=== PATIENT | female | born 1990 | race Caucasian/White ===

== ENCOUNTER 2021-06-23 08:01 | Outpatient (CLI) | payer MEDICAID, SELFPAY ==
[2021-06-23 13:12] LABS: T4 Free Direct 0.98 ng/dL (0.76-1.46)
== END 2021-06-23 23:59 | disposition home or self-care (01) ==
LOC: BIMLAB 08:03
PROVIDERS: Referring Provider Internal Medicine Endocrinology, Diabetes & Metabolism; Visit Provider Internal Medicine Endocrinology, Diabetes & Metabolism
DX: E03.8 Other specified hypothyroidism (principal); E06.3 Autoimmune thyroiditis
CPT/HCPCS: 36415; 84439; 84443

== ENCOUNTER 2023-08-04 12:57 | Emergency (ER) | payer MEDICAID, SELFPAY ==
[2023-08-04 12:57] VITALS: BP 115/82; PULSE 89; RESP 14; TEMP 36.3; O2SAT 100; BMI 34.0
--- NOTE | 2023-08-04 13:36 | ED.VIS.GI ---
HPI HPI - GI History of Present Illness Chief Complaint: Abd Pain Detail of Chief Complaint: Upper abdominal pain with nausea and vomiting Informant: patient Abdominal Pain/Flank Pain Onset: Today Context: Sudden Onset Timing: Continuous Quality: Cramping Location: RUQ and LUQ Current Severity: Mild Maximum Severity: Severe Worsened by: Nothing Nausea/Vomiting/Emesis GI Symptom: Positive for Nausea and Vomiting Onset: Today Severity: Moderate Diarrhea/Melena/Hematochezia GI Symptom: Negative for Diarrhea, Melena or Hematochezia Associated Symptoms Associated Symptoms: Negative for Dysuria, Frequency, Hematuria or Urgency LMP: Patient states she cannot be because she recently delivered. Juhi Narrative Narrative: Patient is a 33-year-old woman. 2 days ago she complained of right shoulder pain. The shoulder pain abated after an hour or 2. She then developed discomfort in her epigastric subxiphoid region. This was yesterday. Today she reports pain that she localizes predominantly right upper quadrant also left upper quadrant without radiation associated with nausea and vomiting. She denies hematemesis or coffee-ground emesis. She endorses fever. She had a temperature of 102 yesterday. She is not having elevated temperature today. She denies any ill contacts. She does report mild nasal congestion. Denies ear pain or ringing in ears. She denies postnasal drainage or rhinorrhea. Denies sore throat. She denies cough or shortness of breath. She denies dyspnea on exertion. She states she had chicken nuggets after the pain started and did not make it worse. There is family history of gallbladder disease her mother of cholecystitis. Patient denies dysuria, frequency, urgency or hematuria. Patient is sexually active. Does not use any form of control. She has a history of hypothyroidism. 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 Karan Daniels MD) household members: children Smoking Status: Current every day smoker tobacco type: cigarettes alcohol intake: current alcohol intake frequency: a few times a month substance use type: other details: Cannabis ROS ROS ED Constitutional Constitutional ED: Reports chills and fever(s); Denies subjective, sweats or weight loss ENT ENT ED: Denies ear pain, rhinorrhea or sore throat Cardiovascular Cardiovascular: Reports chest pain; Denies orthopnea, palpitations, paroxysmal nocturnal dyspnea or racing heartbeat Respiratory/Chest Respiratory/Chest: Denies cough, dyspnea, dyspnea on exertion, orthopnea, paroxysmal nocturnal dyspnea or sputum Gastrointestinal Gastrointestinal: Reports abdominal pain, nausea and vomiting; Denies constipation, diarrhea or melena Genitourinary Genitourinary ED: Denies dysuria, hematuria or urinary frequency Musculoskeletal Musculoskeletal: Denies arthralgias, back pain, myalgias or neck pain Integumentary Denies rash Neurologic Neurologic: Denies headache(s), paresthesias or weakness Endocrine Endocrinology: Denies polydipsia, polyphagia or polyuria Hematologic/Lymphatic Hematologic/Lymphatic: Denies easy bleeding or easy bruising EXAM Physical Exam Const Vital Signs: 08/04/23 12:57 08/04/23 14:14 08/04/23 16:09 Temperature 97.3 F L Temperature Source Temporal Pulse Rate 89 78 85 Respiratory Rate 14 16 Blood Pressure 115/82 H 114/63 104/60 Blood Pressure Mean 93 80 74 Pulse Ox 100 99 Oxygen Delivery Method Room Air Positive well nourished, well developed and obese General Appearance ED: well developed and NAD; Negative for pallor Nutritional Appearance: obese HEENT Reports TM's clear and dry mucous membranes normocephalic and atraumatic Tympanic Membrane ED: Yes TM's clear Mouth ED: Yes dry mucous membranes Mouth: dry mucous membranes Eyes PERRL and EOMs intact bilaterally General Eye ED: Negative for pale conjunctiva or scleral icterus Neck no lymphadenopathy, supple and no JVD Resp normal respiratory effort and clear to auscultation bilaterally Cardio regular rate, regular rhythm, S1 normal heart sound and S2 normal heart sound GI non-distended and no masses; Negative for non-tender Auscultation: hypoactive bowel sounds Palpation: soft and tender epigastric and RUQ Back/Spine no CVA tenderness Thoracic Spine / Upper Back: Negative for thoracic spinal tenderness Lumbar Spine / Lower Back: Negative for lumbar spinal tenderness Extremity full ROM General Extremety ED: Negative for edema or tenderness General Extremity: Negative for edema Neuro CN's II-XII intact bilaterally, moves all extremities, no sensory deficits noted and gait normal Sensorium / Orientation: alert Motor Exam: strength 5/5 throughout Psych mental status grossly normal and thought process normal Skin no wounds General Skin Exam: Negative for jaundice or pallor Rashes: no rashes MDM MDM MDM Narrative Medical decision making narrative: Differential diagnosis would include abdominal pain unknown etiology, peptic ulcer disease, reflux, cholelithiasis, cholecystitis. Workup included CBC, hepatic and lipase. Because of the amount of vomiting electrolyte panel was obtained. If liver enzymes are elevated will obtain ultrasound otherwise suspect this is due to a viral illness and she had a documented temperature of 102.0 ?F yesterday. Lab Data Attestation: I reviewed the patient's lab results. Lab results narrative: CBC is normal. Basic metabolic panel is normal. Liver enzymes are normal. Lipase is normal. Labs: Laboratory Results - last 24 hr 08/04/23 14:10 WBC 5.0 RBC 4.23 Hgb 13.1 Hct 39.7 MCV 93.9 MCH 31.0 MCHC 33.0 RDW Std Deviation 42.5 RDW Coeff of Kiran 12.2 Plt Count 228 MPV 10.8 Immature Gran % (Auto) 0.400 Neut % (Auto) 61.8 Lymph % (Auto) 19.3 [place] % (Auto) 17.3 H Eos % (Auto) 0.6 Baso % (Auto) 0.6 Absolute Neuts (auto) 3.1 Absolute Lymphs (auto) 0.96 Nucleated RBC % 0 Differential Comment SCANNED Sodium 136 Potassium 3.5 Chloride 104 Carbon Dioxide 29.0 Anion Gap 3 L BUN 14 Creatinine 0.90 Estim Creat Clear Calc 105.49 Est GFR (MDRD) Af Amer 93 Est GFR (MDRD) Non-Af 77 BUN/Creatinine Ratio 15.5 Glucose 87 Calcium 8.8 Total Bilirubin 0.50 Direct Bilirubin 0.15 AST 16 ALT 36 Alkaline Phosphatase 33 L Total Protein 7.1 Albumin 3.7 Globulin 3.4 Lipase 17 Treatment and Re-Evaluation :: Patient was reassessed. She reports marked improvement of her pain with Toradol. Suspect this is all due to a viral illness. Patient was informed this. She was given a work excuse and discharged home. Discharge Plan Triage Chief Complaint: Abd Pain ED Provider: Karan Daniels Dx/Rx/DC Orders Clinical Impression: Systemic viral illness, Obesity, Nausea & vomiting, Acute dehydration, Abdominal pain, bilateral upper quadrant Instructions: ED Viral Syndrome (Adult) Prescriptions: No Action levothyroxine 125 mcg tablet 125 mcg PO DAILY Qty: 30 1RF Stand Alone Forms: ED Work / School Excuse Primary Care Provider: Ct Linn NP Referrals: Ct Linn NP, INSURANCE CLAIMS PROCESSOR-C [Primary Care Provider] - 1 Week if not improving Disposition Disposition: Home, Self Care
[2023-08-04 14:13] LABS: Absolute Lymphocyte Count 0.96 X10^3/uL (0.83-4.51); Absolute Neutrophil Count 3.1 X10^3/uL (2.0-7.7); Basophil# 0.03 X10^3/uL; Basophil% 0.6 % (0-1); Eosinophil# 0.03 X10^3/uL; Eosinophils% 0.6 % (0-5); Hematocrit 39.7 % (37-47); Hemoglobin 13.1 g/dL (12.0-15.0); Lymphocyte # 0.96 X10^3/ul (0.83-4.51); Lymphocyte % 19.3 % (19-41); Mean Corpuscular Volume 93.9 fL (81-99); Mean Platelet Vol. 10.8 fl (6.2-12.0); Monocyte# 0.86 X10^3/uL; Monocyte% 17.3 % (0-10); NRBC Flagged by Analyzer 0 % (0-5); Neutrophil # 3.08 X10^3/uL (2.7-7.7); Neutrophil % 61.8 % (47-70); POSITIVE MORPHOLOGY YES; Platelet Count 228 K/mm3 (150-450); RBC Distribution Width CV 12.2 % (11.6-14.6); RBC Distribution Width SD 42.5 fl (35.1-43.9); Red Blood Count 4.23 M/mm3 (4.2-5.4)
[2023-08-04 14:14] VITALS: BP 114/63; PULSE 78
[2023-08-04 14:16] LABS: Differential Indicated SCAN CRITERIA MET
[2023-08-04 14:28] LABS: AST(SGOT) 16 U/L (15-37); Alanine Aminotransfer ALT/SGPT 36 U/L (13-56); Albumin, Serum 3.7 g/dL (3.2-5.0); Alkaline Phosphatase 33 U/L (45-117); Anion Gap 3 (5-15); BUN 14 mg/dL (7-18); BUN/Creat Ratio 15.5 RATIO (10-20); Bilirubin, Direct 0.15 mg/dL (0.00-0.30); Calcium,Total 8.8 mg/dL (8.5-10.1); Chloride 104 mmol/L (98-107); EST Glomerular Filtration Rate 77 mL/min (>60); Est Glom Filt Rate - Afr Amer 93 mL/min (>60); Estimated Creatinine Clearance 105.49 ml/min; Globulin 3.4 g/dL (2.2-4.2); Glucose 87 mg/dL (74-106); Lipase 17 U/L (13-75); Potassium 3.5 mmol/L (3.5-5.1); Protein, Total 7.1 g/dL (6.4-8.2); Sodium Level 136 mmol/L (136-145)
[2023-08-04 14:47] LABS: Differential Comment SCANNED
[2023-08-04] MEDS: Ketorolac 15 MG/ML Vial IV (15:28)
[2023-08-04 16:09] VITALS: BP 104/60; PULSE 85; RESP 16; O2SAT 99
[2023-08-04 16:51] VITALS: BP 110/76; PULSE 81; RESP 14; TEMP 36.1; O2SAT 100
== END 2023-08-04 16:58 | disposition home or self-care (01) ==
PROVIDERS: Emergency Provider Emergency Medicine; PCP Registered Nurse; Visit Provider Emergency Medicine
DX: B34.9 Viral infection, unspecified (principal); R11.2 Nausea with vomiting, unspecified; E66.9 Obesity, unspecified; E86.0 Dehydration; R10.13 Epigastric pain; R09.81 Nasal congestion; F17.200 Nicotine dependence, unspecified, uncomplicated; R10.12 Left upper quadrant pain; E03.9 Hypothyroidism, unspecified; Z87.442 Personal history of urinary calculi
CPT/HCPCS: J2405; 80048; 80076; 83690; 85025; 96374; 99283; J7030; A4216

== ENCOUNTER 2023-11-19 03:46 | Emergency (ER) | payer BC, MEDICAID, SELFPAY ==
[2023-11-19 03:47] VITALS: BP 149/79; PULSE 88; RESP 18; TEMP 35.5; O2SAT 98; BMI 36.8
--- NOTE | 2023-11-19 04:06 | RAD_ITS ---
INDICATION: dyspnea EXAMINATION/TECHNIQUE: X-RAY - XR Chest 2 Views COMPARISON: None. Findings: Frontal and lateral views of the chest. LUNG PARENCHYMA: No acute focal airspace disease or mass lesion. PLEURA: No pleural effusion. No pneumothorax. HEART/GREAT VESSELS: Cardiomediastinal silhouette is unremarkable. BONES: Osseous structures are unremarkable for age. RAD/Chest PA and Lateral IMPRESSION: Chest with no acute disease. Electronically Signed: Sivakumar Rivas MD at 5:59 EDT ,
--- NOTE | 2023-11-19 04:06 | EKG12_ITS ---
Test Reason : Blood Pressure : / mmHG Vent. Rate : 071 BPM Atrial Rate : 071 BPM P-R Int : 128 ms QRS Dur : 092 ms QT Int : 418 ms P-R-T Axes : 036 030 012 degrees QTc Int : 454 ms Normal sinus rhythm Nonspecific T wave abnormality Abnormal ECG Confirmed by JAYSHREE MEADOWS, JENNIFER ([id number]), video news editor JOSIAH FLORES ([id number]) on 11/22/2023 2:02:07 PM Referred By: Confirmed By:KENDRA MARTELL MD
[2023-11-19 04:21] LABS: Absolute Neutrophil Count 4.7 X10^3/uL (2.0-7.7); Basophil# 0.03 X10^3/uL; Basophil% 0.4 % (0-1); Eosinophil# 0.19 X10^3/uL; Eosinophils% 2.4 % (0-5); Hematocrit 33.5 % (37-47); Hemoglobin 11.2 g/dL (12.0-15.0); Lymphocyte % 30.5 % (19-41); Mean Corp Hgb Conc 33.4 g/dL (32-36); Mean Corpuscular Hgb 30.8 pg (27.0-32.0); Mean Platelet Vol. 10.3 fl (6.2-12.0); Monocyte% 6.4 % (0-10); NRBC Flagged by Analyzer 0 % (0-5); Neutrophil # 4.72 X10^3/uL (2.7-7.7); Platelet Count 256 K/mm3 (150-450); RBC Distribution Width CV 13.3 % (11.6-14.6); RBC Distribution Width SD 44.9 fl (35.1-43.9); Red Blood Count 3.64 M/mm3 (4.2-5.4); White Blood Count 7.9 K/mm3 (4.4-11.0)
[2023-11-19 04:31] LABS: Internal QC Validated? YES +Cl - CLEAR BKGD; Pregnancy, Serum, hCG Quali. NEGATIVE Negative
[2023-11-19 04:32] LABS: D-Dimer Quantitative (DVT/PE) 0.28 FEU/ug/m (0.27-0.49)
[2023-11-19 04:40] LABS: Anion Gap 6 (5-15); BUN 18 mg/dL (7-18); BUN/Creat Ratio 20.9 RATIO (10-20); Calcium,Total 9.2 mg/dL (8.5-10.1); Chloride 105 mmol/L (98-107); Creatinine, Serum 0.86 mg/dL (0.55-1.02); EST Glomerular Filtration Rate 81 mL/min (>60); Est Glom Filt Rate - Afr Amer 98 mL/min (>60); Estimated Creatinine Clearance 119.04 ml/min; Glucose 102 mg/dL (74-106); Magnesium 1.8 mg/dL (1.6-2.6); Potassium 3.8 mmol/L (3.5-5.1); Sodium Level 137 mmol/L (136-145); Troponin-I HS < 3 pg/mL (3.0-54.0)
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
[2023-11-19 05:41] VITALS: BP 103/65; PULSE 71; RESP 16; TEMP 36.4; O2SAT 96
== END 2023-11-19 05:41 | disposition home or self-care (01) ==
PROVIDERS: Emergency Provider Emergency Medicine; Visit Provider Emergency Medicine
DX: R20.2 Paresthesia of skin (principal); E03.9 Hypothyroidism, unspecified; F17.200 Nicotine dependence, unspecified, uncomplicated; R06.09 Other forms of dyspnea; Z87.442 Personal history of urinary calculi; R07.9 Chest pain, unspecified
CPT/HCPCS: 71046; 80048; 83735; 84484; 84703; 85025; 85379; 93005; 99282; J7030

== ENCOUNTER 2024-01-31 10:01 | Emergency (ER) | payer BC, MEDICAID, SELFPAY ==
[2024-01-31 10:02] VITALS: BP 135/91; PULSE 107; RESP 16; TEMP 36.1; O2SAT 100; BMI 35.2
--- NOTE | 2024-01-31 10:10 | ED.RN ---
PT SAID SHE HAS BEEN DRINKING NON-STOP AND FEELS LIKE SHE NEVER FEELS LIKE HER THIRST IS QUENCHED. SHE HAS HAD SOME DIARRHEA ON TUESDAY INTERMITTENTLY. HX OF KIDNEY STONES AND BLADDER INFECTIONS. SHE SAID HER URINE HAS BEEN SMELLING VERY STRONG.
--- NOTE | 2024-01-31 10:15 | CT_ITS ---
INDICATION: left flank p[ain. K-stone hx EXAMINATION: CT ABDOMEN AND PELVIS WITHOUT CONTRAST - CT Abdomen And Pelvis W/O Contrast Injection TECHNIQUE: Helically acquired images were obtained of the abdomen and pelvis without oral or IV contrast. The protocol utilizes one or more of the following dose reduction techniques: automated exposure control, adjustment of mA and/or kV according to patient size,and/or use of iterative reconstruction technique. IV Contrast dosage and agent: None. Oral contrast: None. RADIATION DOSAGE (If Supplied By Facility): CTDIvol = ( 19.07 ) mGy, DLP = ( 1114.85 ) mGycm COMPARISON: No relevant prior comparison study available FINDINGS: LOWER CHEST: Lung bases are clear. No cardiomegaly or pericardial effusion. LIVER: Homogeneous. No focal mass. GALLBLADDER AND BILIARY TREE: Absent gallbladder consistent with previous cholecystectomy. No intra- or extrahepatic biliary ductal dilation. PANCREAS: No focal cystic or solid mass. SPLEEN: Normal size without focal cystic or solid mass. ADRENAL GLANDS: No nodules. KIDNEYS AND URETERS: 4 mm nonobstructing stone in the midpole of right kidney. No hydronephrosis. PERITONEUM: No ascites or free air. No other fluid collection. BOWEL: No evidence of acute appendicitis. No stomach or bowel distension. No focal inflammatory change. LYMPH NODES: No enlarged mesenteric or retroperitoneal lymph nodes. VESSELS: Aorta is non-dilated. URINARY BLADDER: The bladder is not distended. Multiple pelvic calcifications likely due to phleboliths. REPRODUCTIVE ORGANS: No pelvic masses. ABDOMINAL WALL: Very small umbilical hernia containing fat. BONES: No lytic or blastic abnormality. CT/Abdomen/Pelvis without Cont IMPRESSION: 1. Small nonobstructing stone in the right kidney without evidence of hydronephrosis. 2. No focal acute inflammatory process. Electronically Signed: Yuval Lewis MD at 11:07 EDT ,
--- NOTE | 2024-01-31 10:17 | ED.VIS.GI ---
HPI HPI - GI History of Present Illness Chief Complaint: Flank Pain Detail of Chief Complaint: Atraumatic left flank pain for 3 days. Informant: patient Abdominal Pain/Flank Pain Onset: Days Context: Gradual Onset Timing: Continuous Location: Left Flank Current Severity: Mild Maximum Severity: Moderate Worsened by: Nothing Relieved by: Nothing Nausea/Vomiting/Emesis GI Symptom: Negative for Nausea or Vomiting Diarrhea/Melena/Hematochezia GI Symptom: Positive for Diarrhea; Negative for Melena or Hematochezia Associated Symptoms Associated Symptoms: Negative for Dysuria, Frequency or Hematuria Narrative Narrative: 34-year-old female history of prior kidney stones, hypothyroidism and UTIs. Complaint left flank pain for the last 3 days since Tuesday. Mild diarrhea last several days.. Denies dysuria or hematuria. No fever. No vomiting. 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 Home Medications ?Medication ?Instructions ?Recorded ?Last Taken ?Type levothyroxine 125 mcg tablet 125 mcg PO DAILY #30 tabs 04/07/22 Unknown Rx Allergy/AdvReac Type Severity Reaction Status Date / Time sulfamethoxazole (From Allergy Rash Verified 01/31/24 10:12 Bactrim) trimethoprim (From Bactrim) Allergy Rash Verified 01/31/24 10:12 Family History Other Alcohol abuse CAD (coronary artery disease) Diabetes Hypertension Thyroid disorder Social History household members: children Smoking Status: Current every day smoker tobacco type: e-cigarettes alcohol intake: current alcohol intake frequency: a few times a month substance use type: other details: Cannabis ROS ROS ED ROS Narrative Left flank pain. Diarrhea. Constitutional Constitutional ED: Denies chills or fever(s) ENT ENT ED: Denies ear pain Cardiovascular Cardiovascular: Denies chest pain Respiratory/Chest Respiratory/Chest: Denies cough or dyspnea Gastrointestinal Gastrointestinal: Reports abdominal pain and diarrhea; Denies constipation, melena, nausea or vomiting Genitourinary Genitourinary ED: Denies dysuria or hematuria Musculoskeletal Musculoskeletal: Reports back pain; Denies arthralgias Integumentary Denies abscess or Abrasions Neurologic Neurologic: Denies headache(s) Psychiatric Psychiatric: Denies anxiety Endocrine Endocrinology: Denies polydipsia Hematologic/Lymphatic Hematologic/Lymphatic: Denies easy bleeding Allergic/Immunologic Allergic/Immunologic ED: Denies mouth swelling, tongue swelling or urticaria EXAM Physical Exam Narrative Exam Narrative: 34-year-old female no acute distress vital signs stable afebrile. H EENT exam unremarkable. Mytrex membranes. Neck nontender no lymphadenopathy. Lungs good auscultation bilaterally. Heart regular rhythm rate about 100 no murmur. Abdomen soft, nontender, nondistended normal bowel sounds without peritoneal signs. Back she has reproducible soft tissue muscular pain left [place] lumbar thoracic soft tissue. No ecchymosis or bruising. No signs of trauma. No redness or warmth. The rest of her back and spine is completely nontender. Moving all 4 extremities. Nontender. No edema normal strength. Normal range of motion. She is awake and alert. No focal motor deficits. Const Vital Signs: 01/31/24 10:02 Temperature 97.0 F L Temperature Source Temporal Pulse Rate 107 H Respiratory Rate 16 Blood Pressure 135/91 H Blood Pressure Mean 105 Pulse Ox 100 Oxygen Delivery Method Room Air Positive well nourished and well developed; Negative for cachectic, contractures or unkempt General Appearance ED: well developed and NAD; Negative for unkempt, cachectic, contractures or pallor Nutritional Appearance: Negative for cachectic HEENT Reports moist mucous membranes normocephalic and atraumatic Eyes PERRL and EOMs intact bilaterally General Eye ED: Negative for pale conjunctiva or scleral icterus Neck no lymphadenopathy, supple and no JVD Resp normal respiratory effort and clear to auscultation bilaterally Cardio regular rate, regular rhythm, S1 normal heart sound, S2 normal heart sound and no murmurs GI non-tender, non-distended and no masses Inspection: Negative for abdominal distention Auscultation: normoactive bowel sounds Palpation: soft; Negative for tender, guarding or rebound tenderness present Back/Spine no CVA tenderness Back/Spine Narrative: Left flank tenderness appears to be musculoskeletal. No ecchymosis or bruising. No signs of trauma. No spinal tenderness. Cervical Spine: Negative for cervical spine tenderness Thoracic Spine / Upper Back: Negative for thoracic spinal tenderness Lumbar Spine / Lower Back: Negative for lumbar spinal tenderness Extremity full ROM General Extremety ED: Negative for edema or tenderness General Extremity: Negative for edema Neuro CN's II-XII intact bilaterally, moves all extremities and no sensory deficits noted Sensorium / Orientation: alert, oriented to person, oriented to place and oriented to time Motor Exam: strength 5/5 throughout Psych mental status grossly normal and thought process normal Appearance: Negative for unkempt Attitude: No agitated Mood & Affect: Negative for depressed or anxious Skin no wounds General Skin Exam: Negative for jaundice or pallor Rashes: no rashes Trauma: Negative for abrasion MDM MDM MDM Narrative Medical decision making narrative: 34-year-old female left flank pain for the last 3 days or so. She had recent blood work at the end of November. I do not think she needs lab work at this time. We are obtaining urinalysis. To consider UTI or hematuria. A CT flank study due to her history of prior kidney stones. This may be musculoskeletal however. IV Toradol for pain. CAT scan and urine were unremarkable. I think her pain is secondary to musculoskeletal back pain. I do not think this is a kidney stone or kidney infection. Motrin and Tylenol for pain. Patient I discussed she does not want a muscle relaxant I do not think she needs one either. Outpatient follow-up as needed. History & Record Review Discussion w/independent historian: Patient Lab Data Attestation: I reviewed the patient's lab results. Lab results narrative: Urinalysis shows: Macroscopic shows 25 occult blood. No nitrites. Microscopic showed no signs of infection. 1+ bacteria. CT flank study showed a small stone in the right kidney but no acute left ureteral stone or obstruction. Labs: Laboratory Results - last 24 hr 01/31/24 10:24 Urine Color Yellow Urine Clarity Sl. Cloudy Urine pH 6.0 Ur Specific [place] 1.025 Urine Protein 15 H Urine Glucose (UA) Normal Urine Ketones Negative Urine Occult Blood 25 H Urine Nitrite Negative Urine Bilirubin Negative Urine Urobilinogen Normal Ur Leukocyte Esterase Negative Urine RBC 0-5 SEEN Urine WBC 0 SEEN Ur Squamous Epith Cells 0-5 SEEN Urine Bacteria 1+ Urine Mucus 1+ Radiography Diagnostic Testing: Clinical Impression(s) from Imaging Studies Abdomen/Pelvis CT 01/31/24 10:15 IMPRESSION: 1. Small nonobstructing stone in the right kidney without evidence of hydronephrosis. 2. No focal acute inflammatory process. Electronically Signed: Yuval Lewis MD at 11:07 EDT , Discharge Plan Triage Chief Complaint: Flank Pain ED Provider: Shawn Andrea Dx/Rx/DC Orders Clinical Impression: Acute left flank pain, Musculoskeletal back pain, History of renal stone Instructions: ED Back Pain (Acute or Chronic) Prescriptions: No Action levothyroxine 125 mcg tablet 125 mcg PO DAILY Qty: 30 1RF Patient Comments: pt reports she has not taken medication in 30 days Primary Care Provider: Penelope Montano Referrals: Care Physician,No Primary [Non-Staff] - Penelope Montano PA-C [Primary Care Provider] - As Needed Activity Restrictions/Additional Instructions: Your CAT scan did not show any acute signs of a left sided kidney stone. Your urine did not look infected. Most likely your pain is from muscle spasm in your back. Hot shower warm bath. Massage. Motrin 600 mg 3 times daily. And Tylenol. Follow-up if not improving or return if worse. Print Language: Citizen Of [place] Disposition Disposition: Home, Self Care
[2024-01-31] MEDS: Ketorolac 30 MG/ML Syringe IV (10:20)
[2024-01-31 10:28] LABS: White Blood Cells 0 SEEN /hpf (0-5)
[2024-01-31 10:42] LABS: Color, Urine Yellow (Yellow); Glucose, Dipstick Normal (Normal); Ketone-Dipstick Negative (Negative); Leukocyte Esterase-Dipstick Negative /ul (Negative); Nitrite-Dipstick Negative (Negative); Occult Blood-Urine 25 /ul (Negative); Protein-Dipstick 15 mg/dl (Negative); Specific Gravity, Urine 1.025 (1.002-1.030); Urine Bilirubin Dipstick Negative (Negative); Urine Clarity Sl. Cloudy (Clear); Urine Urobilinogen Normal (Normal)
[2024-01-31 10:48] LABS: Bacteria 1+ /hpf (None Seen); Mucous, Urine 1+ /hpf (<or=2+); Red Blood Cells-Urine 0-5 SEEN /hpf (0-5); Squamous Epithelial Cells - UA 0-5 SEEN /hpf (5-10)
[2024-01-31 11:33] VITALS: BP 141/73; PULSE 67; RESP 15; TEMP 36.6; O2SAT 96
== END 2024-01-31 11:34 | disposition home or self-care (01) ==
PROVIDERS: Emergency Provider Emergency Medicine; Visit Provider Emergency Medicine
DX: R10.9 Unspecified abdominal pain (principal); R19.7 Diarrhea, unspecified; N20.0 Calculus of kidney; E03.9 Hypothyroidism, unspecified; M54.9 Dorsalgia, unspecified; Z87.442 Personal history of urinary calculi; Z87.440 Personal history of urinary (tract) infections; F17.210 Nicotine dependence, cigarettes, uncomplicated
CPT/HCPCS: 74176; 81001; 96374; 99283; A4216

== ENCOUNTER 2024-02-21 17:24 | Emergency (ER) | payer BC, MEDICAID, SELFPAY ==
[2024-02-21 17:25] VITALS: BP 125/97; PULSE 87; RESP 18; TEMP 36.2; O2SAT 97; BMI 35.8
[2024-02-21 17:28] VITALS: BP 125/97; PULSE 87; RESP 18; TEMP 36.2; O2SAT 97
--- NOTE | 2024-02-21 19:02 | EDS_ITS ---
HPI History of Present Illness Chief Complaint: Dental Informant: patient Narrative Narrative: Increasing right lower dental pain over 3 days. Had a root canal in this tooth 2 weeks ago by [facility]. States sensitivities. She tried calling her dentist today told to go to the ER. She has tried Tylenol and Motrin. No fevers. 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 Home Medications ?Medication ?Instructions ?Recorded ?Last Taken ?Type levothyroxine 125 mcg tablet 125 mcg PO DAILY #30 tabs 04/07/22 Unknown Rx hydrocodone-acetaminophen 5-325mg 1 tab PO Q6H PRN PRN Pain 3 days 02/21/24 Unknown Rx 5mg-325mg #10 TABLETS penicillin V potassium 500 mg 500 mg PO 4X/DAY #40 tabs 02/21/24 Unknown Rx tablet Allergy/AdvReac Type Severity Reaction Status Date / Time sulfamethoxazole (From Allergy Rash Verified 02/21/24 17:25 Bactrim) trimethoprim (From Bactrim) Allergy Rash Verified 02/21/24 17:25 Family History Other Alcohol abuse CAD (coronary artery disease) Diabetes Hypertension Thyroid disorder Social History household members: children Smoking Status: Current every day smoker tobacco type: e-cigarettes alcohol intake: current alcohol intake frequency: a few times a month substance use type: other details: Cannabis ROS ROS ED Constitutional Constitutional ED: Denies chills, fever(s) or sweats Eyes Eyes: Denies change in vision ENT ENT ED: Reports other Details: Right lower dental pain ; Denies dysphagia or sore throat Cardiovascular Cardiovascular: Denies chest pain Respiratory/Chest Respiratory/Chest: Denies cough Gastrointestinal Gastrointestinal: Denies abdominal pain, diarrhea, nausea or vomiting Neurologic Neurologic: Denies headache(s), paresthesias or weakness EXAM Physical Exam Const Vital Signs: 02/21/24 17:25 02/21/24 17:28 Temperature 97.1 F L 97.1 F L Temperature Source Temporal Temporal Pulse Rate 87 87 Respiratory Rate 18 18 Blood Pressure 125/97 H 125/97 H Blood Pressure Mean 106 106 Pulse Ox 97 97 Oxygen Delivery Method Room Air Room Air Positive well nourished and well developed General Appearance ED: well developed and NAD HEENT Reports moist mucous membranes HEENT Narrative: Right lower gums no swelling no fluctuance. Mild tenderness tooth percussion #30 no sublingual edema. Airway patent. No trismus. normocephalic and atraumatic Eyes EOMs intact bilaterally and conjunctivae normal General Eye ED: Yes normal appearance of both eyes Neck no lymphadenopathy and supple General: Negative for tenderness Chest Wall Chest: Negative for tenderness Resp normal respiratory effort and normal air movement Effort and Inspection: symmetric chest movement; Negative for respiratory distress Cardio regular rate, regular rhythm and no murmurs Peripheral Pulses: pulses 2+ throughout GI normal to inspection, nondistended, normoactive bowel sounds and non-tender Palpation: Negative for guarding or rebound tenderness present Back/Spine no CVA tenderness and no thoracic nor lumbar tenderness Extremity normal to inspection General Extremety ED: Negative for edema or tenderness General Extremity: Negative for edema Neuro oriented x3 and no sensory deficits noted Sensorium / Orientation: awake and alert Skin no rashes or lesions noted and no wounds MDM MDM MDM Narrative Medical decision making narrative: Interventions / MDM: Differential diagnosis: Dentalgia status post root canal Diagnosis considered but do not suspect: N/A My EKG interpretation: N/A Imaging independently reviewed and interpreted by myself: N/A External documents reviewed: N/A Test considered but not ordered:N/A ED course: Vital stable nontoxic. No pain relief with Tylenol Motrin at home. OARRS report was negative. She started on penicillin and short course of Vernon to use as needed. She will follow-up with her dentist for reevaluation as an outpatient. All questions were answered. Re-evaluation: stable Disposition discussed with patient/family/significant other: Patient Case discussed with consulting clinician: N/A This note was generated with [employer] dictation software. It may contain incorrect words, spelling, and punctuation that were not noted in checking the note before signing. Discharge Plan Triage Chief Complaint: Dental ED Provider: Matias Hagen Dx/Rx/DC Orders Clinical Impression: Dentalgia, History of root canal procedure Instructions: ED Dental Pain Prescriptions: New hydrocodone-acetaminophen 5-325 mg tablet 1 tab PO Q6H PRN PRN (Reason: Pain) 3 Days Qty: 10 0RF penicillin V potassium 500 mg tablet 500 mg PO 4X/DAY Qty: 40 0RF No Action levothyroxine 125 mcg tablet 125 mcg PO DAILY Qty: 30 1RF Patient Comments: pt reports she has not taken medication in 30 days Primary Care Provider: Penelope Montano Referrals: Penelope Montano PA-C [Primary Care Provider] - Activity Restrictions/Additional Instructions: Take antibiotic as prescribed. Continue Motrin at home. Vernon as needed. Follow-up with dentist for definitive evaluation and treatment. Print Language: Khmer Disposition Disposition: Home, Self Care Discharge Date/Time: 02/21/24 19:20
[2024-02-21] MEDS: HYDROcodone Bitartrate/Apap 5/325 Tablet PO (19:14)
[2024-02-21] MEDS: Penicillin Vk 250 MG Tablet 500 MG PO (19:14)
== END 2024-02-21 19:20 | disposition home or self-care (01) ==
PROVIDERS: Emergency Provider Emergency Medicine; Visit Provider Emergency Medicine
DX: K08.89 Other specified disorders of teeth and supporting structures (principal); E03.9 Hypothyroidism, unspecified; Z87.442 Personal history of urinary calculi; F17.210 Nicotine dependence, cigarettes, uncomplicated; F12.90 Cannabis use, unspecified, uncomplicated; Z98.818 Other dental procedure status
CPT/HCPCS: 99283

== ENCOUNTER 2024-06-12 22:02 | Emergency (ER) | payer BC, MEDICAID, SELFPAY ==
[2024-06-12 22:03] VITALS: BP 121/90; PULSE 113; RESP 20; TEMP 36.6; O2SAT 100; BMI 36.4
== END 2024-06-12 22:06 | disposition left against medical advice (07) ==
LOC: ED 22:23
DX: R11.2 Nausea with vomiting, unspecified (principal); R19.7 Diarrhea, unspecified

== ENCOUNTER 2024-06-13 09:59 | Emergency (ER) | payer SELFPAY ==
[2024-06-13 10:00] VITALS: BP 118/99; PULSE 126; RESP 17; TEMP 36.3; O2SAT 98; BMI 36.0
[2024-06-13 10:03] VITALS: BP 118/99; PULSE 126; RESP 17; TEMP 36.3; O2SAT 98
--- NOTE | 2024-06-13 10:23 | EX.ED.DYSGE1 ---
HPI History of Present Illness Chief Complaint: Nausea/Vomiting/Diarrhea Detail of Chief Complaint: Nausea, vomiting and diarrhea that started yesterday with cramping abdomina Informant: patient Onset/Context/Timing Onset: Yesterday Context: Sudden Onset Timing: Continuous (Nausea is constant and patient has cramping abdominal pain that is constant) and Waxes and wanes Quality: Crampy Location: Predominantly upper Current Severity: Mild Maximum Severity: Severe Worsened by: Vomiting and diarrhea Relieved by: Nothing Associated Symptoms Associated Symptoms: Dry mouth, thirst and orthostatic lightheadedness Narrative Narrative: Patient is a 34-year-old female. Patient patient resents with nausea, vomit diarrhea that started yesterday. She reports vomiting greater than 15 times and greater than 15 loose stools. After vomiting several times she noted there was slight blood streak. She denied coffee-ground emesis. She denies maroon or black stool. She denies mucus or blood in her stool. She denies ill contacts. She denies fever or chills. Patient [place] headache, visual, ocular auditory symptoms. Patient has no upper respiratory tract infectious symptoms. Patient denies myalgias or arthralgias. Patient is not sexually active. Last normal menstrual period 3 weeks ago. She is on medicine for thyroid. 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 Home Medications ?Medication ?Instructions ?Recorded ?Last Taken ?Type levothyroxine 125 mcg tablet 125 mcg PO DAILY #30 tabs 04/07/22 Unknown Rx hydrocodone-acetaminophen 5-325mg 1 tab PO Q6H PRN PRN Pain 3 days 02/21/24 Unknown Rx 5mg-325mg #10 TABLETS penicillin V potassium 500 mg 500 mg PO 4X/DAY #40 tabs 02/21/24 Unknown Rx tablet ondansetron 4 mg disintegrating 4 mg PO Q8H PRN PRN Nausea #10 tabs 06/13/24 Unknown Rx tablet Allergy/AdvReac Type Severity Reaction Status Date / Time sulfamethoxazole (From Allergy Rash Verified 06/12/24 22:03 Bactrim) trimethoprim (From Bactrim) Allergy Rash Verified 06/12/24 22:03 Family History Other Alcohol abuse CAD (coronary artery disease) Diabetes Hypertension Thyroid disorder Social History (Updated 06/13/24 @ 10:52 by Lynn Fernandez) household members: significant other and children current occupational status: unemployed Smoking Status: Current every day smoker tobacco type: e-cigarettes alcohol intake: current alcohol intake frequency: a few times a month substance use type: other details: Cannabis ROS ROS ED Constitutional Constitutional ED: Denies chills, fever(s), subjective, sweats or weight loss Eyes Eyes: Denies blurry vision, change in vision or diplopia ENT ENT ED: Reports other Details: Thirst and dry mouth ; Denies ear pain, rhinorrhea or sore throat Cardiovascular Cardiovascular: Denies chest pain or palpitations Respiratory/Chest Respiratory/Chest: Denies cough, dyspnea or dyspnea on exertion Gastrointestinal Gastrointestinal: Reports abdominal pain, diarrhea, nausea and vomiting; Denies constipation or melena Genitourinary Genitourinary ED: Reports other Details: Decreased urine output ; Denies dysuria, hematuria or urinary frequency Musculoskeletal Musculoskeletal: Denies arthralgias or myalgias Integumentary Denies rash Neurologic Neurologic: Denies headache(s) or paresthesias Endocrine Endocrinology: Denies cold intolerance or heat intolerance Hematologic/Lymphatic Hematologic/Lymphatic: Reports systems reviewed and no addt'l complaints, except as documented EXAM Physical Exam Const Vital Signs: 06/13/24 10:00 06/13/24 10:03 06/13/24 12:13 Temperature 97.4 F L 97.4 F L Temperature Source Temporal Temporal Pulse Rate 126 H 126 H 85 Respiratory Rate 17 17 18 Blood Pressure 118/99 H 118/99 H Blood Pressure Mean 105 105 Pulse Ox 98 98 100 Oxygen Delivery Method Room Air Room Air Room Air 06/13/24 14:00 Temperature Temperature Source Pulse Rate 80 Respiratory Rate 18 Blood Pressure Blood Pressure Mean Pulse Ox 98 Oxygen Delivery Method Room Air Positive well nourished and well developed Constitutional Narrative: BMI is 36.0. Patient appears ill. General Appearance ED: well developed and pallor; Negative for cyanotic or diaphoretic HEENT Reports dry mucous membranes HEENT Narrative: Head is atraumatic normocephalic. Ears normal. Nares patent. Posterior pharynx is normal. Uvula is midline. There is no deviation tongue or protrusion. Mouth ED: Yes dry mucous membranes Mouth: dry mucous membranes Eyes PERRL and EOMs intact bilaterally General Eye ED: Negative for pale conjunctiva or scleral icterus Neck no lymphadenopathy, supple and no JVD Chest Wall inspection of chest normal and palpation of chest normal Resp normal respiratory effort and clear to auscultation bilaterally Cardio regular rhythm, S1 normal heart sound, S2 normal heart sound and no murmurs Rate: tachycardic GI normal to inspection, nondistended, normoactive bowel sounds, non-distended and no masses; Negative for non-tender or hepatosplenomegaly Auscultation: hypoactive bowel sounds Palpation: soft Back/Spine no CVA tenderness Extremity normal to inspection General Extremety ED: Negative for edema General Extremity: Negative for edema Neuro oriented x3 and CN's II-XII intact bilaterally Neuro Narrative: Moves all extremities. Sensorium / Orientation: alert Psych mental status grossly normal Skin no rashes or lesions noted, no wounds and skin turgor normal General Skin Exam: pallor; Negative for jaundice MDM MDM MDM Narrative Medical decision making narrative: Patient with nausea vomit diarrhea. Suspect this is due to a viral illness. Slight amount of blood that was noted was in all likelihood due to a Josseline-Dumas tear. Since there was no manju blood or coffee-ground emesis will not proceed with NG. Because of the amount of the vomiting and diarrhea will obtain basic metabolic panel to assess CO2 anion gap, renal function and evaluate for hypokalemia. 1 L of normal saline was ordered. Zofran was ordered for the nausea and vomiting. If she has diarrhea in department will treat with Imodium. Lab Data Labs: Laboratory Results - last 24 hr 06/13/24 10:17 Sodium 134 L Potassium 3.5 Chloride 102 Carbon Dioxide 23.0 Anion Gap 9 BUN 13 Creatinine 1.35 H Estim Creat Clear Calc 74.32 Est GFR (MDRD) Af Amer 58 L Est GFR (MDRD) Non-Af 48 L BUN/Creatinine Ratio 9.6 L Glucose 121 H Calcium 8.9 Treatment and Re-Evaluation :: Noticed nurse's note that patient is requesting pain medicine at 1204. Bentyl was ordered. This will alleviate/help her pain as well as assess if she is still having nausea and vomiting and able to pass p.o. challenge. Comments:: Patient was reassessed at 1213. She states she urinated small amount. Will order second liter. She said her urine was dark. Patient was reassessed at 1318. Only 100 cc of the second liter has infused. Will reassess after liter has infused. She does report feeling better. She is smiling. She has not vomited since she has been here. She did pass p.o. challenge. The Bentyl did help with the cramping pain Patient was reassessed at 1347 since there was a nurse communication the patient is requesting nausea medicine. She is nauseous again. Will treat with Reglan this time. Patient was reassessed at 1444. She reports diarrhea. She has had no urine output. Third liter was ordered. Imodium was ordered as well. 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, Colicky abdominal pain, Acute dehydration, Sinus tachycardia seen on die finisher forging, Adult BMI 36.0-36.9 kg/sq m, Orthostatic lightheadedness Instructions: ED Dehydration (Adult), ED Vomit Diarrhea Nonspec Adult Prescriptions: New ondansetron 4 mg tablet,disintegrating 4 mg PO Q8H PRN PRN (Reason: Nausea) Qty: 10 0RF No Action hydrocodone-acetaminophen 5-325 mg tablet 1 tab PO Q6H PRN PRN (Reason: Pain) 3 Days Qty: 10 0RF penicillin V potassium 500 mg tablet 500 mg PO 4X/DAY Qty: 40 0RF levothyroxine 125 mcg tablet 125 mcg PO DAILY Qty: 30 1RF Patient Comments: pt reports she has not taken medication in 30 days Primary Care Provider: Penelope Montano Referrals: Penelope Montano PA-C [Primary Care Provider] - 3-5 Days (Patient's creatinine elevated to 1.35 due to nausea 5 diarrhea. Needs repeat BMP in 3 to 5 days) Activity Restrictions/Additional Instructions: Take 1 Imodium capsule with each watery bowel movement up to 6 in 24 hours. Contact your physician assistant grocery for blood work in 3 to 5 days to assess your renal function. Print Language: Persian Disposition Disposition: Home, Self Care
[2024-06-13] MEDS: Ondansetron 4 MG/2 ML Vial IV (10:48)
[2024-06-13] MEDS: 0.9% Normal Saline (1000mL) 1,000 ML 1000 ML IV ×3 (10:48→15:00)
[2024-06-13 11:04] LABS: Anion Gap 9 (5-15); BUN 13 mg/dL (7-18); BUN/Creat Ratio 9.6 RATIO (10-20); Calcium,Total 8.9 mg/dL (8.5-10.1); Chloride 102 mmol/L (98-107); Creatinine, Serum 1.35 mg/dL (0.55-1.02); EST Glomerular Filtration Rate 48 mL/min (>60); Est Glom Filt Rate - Afr Amer 58 mL/min (>60); Estimated Creatinine Clearance 74.32 ml/min; Glucose 121 mg/dL (74-106); Potassium 3.5 mmol/L (3.5-5.1); Sodium Level 134 mmol/L (136-145)
[2024-06-13] MEDS: Dicyclomine 10 MG Capsule 20 MG PO (12:11)
[2024-06-13 12:13] VITALS: PULSE 85; RESP 18; O2SAT 100
[2024-06-13] MEDS: Metoclopramide 10 MG/2 ML Vial 5 MG IV (13:56)
[2024-06-13 14:00] VITALS: PULSE 80; RESP 18; O2SAT 98
[2024-06-13] MEDS: Loperamide 2 MG Capsule 4 MG PO (14:59)
[2024-06-13 16:00] VITALS: PULSE 91; RESP 20; O2SAT 100
== END 2024-06-13 16:32 | disposition home or self-care (01) ==
PROVIDERS: Emergency Provider Emergency Medicine; Visit Provider Emergency Medicine
DX: R11.2 Nausea with vomiting, unspecified (principal); R42 Dizziness and giddiness; E06.3 Autoimmune thyroiditis; R00.0 Tachycardia, unspecified; E86.0 Dehydration; R10.9 Unspecified abdominal pain; E03.9 Hypothyroidism, unspecified; R19.7 Diarrhea, unspecified; Z87.442 Personal history of urinary calculi; F17.290 Nicotine dependence, other tobacco product, uncomplicated; F12.90 Cannabis use, unspecified, uncomplicated
CPT/HCPCS: 80048; 96361; 96374; 96375; 99283; J2405

== ENCOUNTER 2025-04-09 14:46 | Emergency (ER) | payer SELFPAY ==
[2025-04-09 14:47] VITALS: BP 108/73; PULSE 61; RESP 18; TEMP 35.7; O2SAT 97; BMI 30.5
--- NOTE | 2025-04-09 15:53 | EDS_ITS ---
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 Home Medications ?Medication ?Instructions ?Recorded ?Last Taken ?Type levothyroxine 175 mcg tablet 175 mcg PO DAILY 04/09/25 04/08/25 History oxycodone 5 mg tablet 5 mg PO Q6H PRN pain 3 days #12 04/09/25 Unknown Rx tabs vit no.95-ferrous 1 tab PO DAILY 04/09/25 Unk nown History fumarate 28 mg-folic acid 800 mcg tablet ( Multivitamins) Allergy/AdvReac Type Severity Reaction Status Date / Time sulfamethoxazole (From Allergy Rash Verified 04/09/25 14:47 Bactrim) trimethoprim (From Bactrim) Allergy Rash Verified 04/09/25 14:47 Family History Other Alcohol abuse CAD (coronary artery disease) Diabetes Hypertension Thyroid disorder Social History household members: significant other and children current occupational status: unemployed Smoking Status: Current every day smoker tobacco type: e-cigarettes alcohol intake: current alcohol intake frequency: a few times a month substance use type: other details: Cannabis EXAM Physical Exam Const Vital Signs: 04/09/25 14:47 04/09/25 16:40 Temperature 96.3 F L Temperature Source Temporal Pulse Rate 61 Respiratory Rate 18 Respiratory Effort Normal Non-Labored Respiratory Depth Normal Respiratory Pattern Normal Blood Pressure 108/73 Blood Pressure Mean 84 Pulse Ox 97 Oxygen Delivery Method Room Air Room Air PROC Procedures Upper Extremity Splints Upper Extremity Splint: Orthoglass Splint Fabrication: Fabricated Location: Left MDM MDM MDM Narrative Medical decision making narrative: HISTORY OF PRESENT ILLNESS: Chief complaint: Fall, left arm pain 35-year-old female presents secondary to fall. States she fell down the stairs last night. She endorses pain in her left arm and bruising to her chin. She endorses losing consciousness. She further states patient suffered a mechanical fall down approximately 9 stairs yesterday. Notes pos pain in her left forearm. Denies blood thinners. No she was not drinking at the time however she did drink earlier this morning to take the edge off. REVIEW OF SYSTEMS: Pertinent positives: Head trauma, left arm pain, loss of consciousness Pertinent negatives: Shoulder pain, chest pain or other extremity injury PHYSICAL EXAM: Nursing triage notes reviewed, Vital signs reviewed Primary Survey Airway: Intact Breathing: Bilateral breath sounds Circulation: Palpable bilateral femorals, Palpable bilateral radial, Palpable bilateral DP and Palpable bilateral PT Disability / Spine precautions GCS Score: Eye Openin Verbal Response: 5 Motor Response: 6 Secondary Survey Constitutional: Please see MDM Head: bruising noted to chin midface stable, NO jaw malocclusion, No Cephalohematoma, and No Lacerations noted Eye: Pupils equal round and reactive to light, Extraocular muscles intact and No periorbital ecchymosis or stepoff, no evidence of entrapment ENT: Oropharynx clear, no lacerations, no hemotympanum, no raccoon eyes or mcfarlane sign Cervical spine / Neck: No cervical spine bony tenderness, crepitance, or stepoff deformity Trachea midline Lungs: Clear to auscultation, No asymmetric rise and No crepitus, no flail chest Cardiac: Regular rate and rhythm and No murmurs Abdomen: Soft, Nontender and No rebound Pelvis: Pelvis stable to compression : No evidence of genital injury Back: No midline bony tenderness to thoracic/lumbar/sacral spines Neuro: At baseline, intact strength and sensation in bilateral upper and lower extremities. 2+ patellar reflexes bilaterally. Extremities: TTP over left mid forearm, bruising ecchymosis over left mid forearm, exquisitely tender over left mid forearm. TTP over left elbow. No left wrist or shoulder tenderness noted. No other TTP, deformities, bruising or signs of trauma to any of the other extremities. Psych: Normal affect Nursing triage notes reviewed, Vital signs reviewed MEDICAL DECISION MAKING: Chief Complaint: please see HPI External records reviewed: Reviewed prior imaging studies Factors affecting care: Obesity, hypothyroidism Social determinants of health: Denies illicit drug use, endorses alcohol today History obtained from others: none Consults: none [facility] Narrative: The patient was initially hemodynamically stable, afebrile and nontoxic- appearing. Primary secondary trauma surveys concerning for the following differential: I considered the following differential diagnosis: ICH, facial fracture, cer vical spine fracture, left upper extremity fracture I obtained imaging studies to further determine if the patient was suffering from a life-threatening etiology. Initially treated with oral Tylenol ALL IMAGES (IF OBTAINED) HAVE BEEN PERSONALLY REVIEWED AND INTERPRETED BY MYSELF. CT scan of the brain, cervical spine and face showed no evidence of obvious bony injury. X-rays of the left forearm, elbow were read and reviewed personally so showed evidence of a midshaft ulnar fracture with minimal displacement. On reassessment tertiary trauma exam revealed no new injury. The patient left upper shoulder is neurovascularly intact. Will place splint. Will give pain control for home-going. Will have the patient follow with orthopedic surgery next available appointment. The patient and/or family, caregivers express understanding. The patient and/or family, caregivers agrees with the plan. Shared decision making: I will have a discussion with the patient and or visitors regarding risk/benefits of further testing or admission. They will be made aware of of the risk/benefits inherent in this decision they will be given the opportunity to voice understanding. Total critical care time today provided was at least 0 minutes. This excludes separately billable procedures. Critical care time (if documented) is secondary to the patient having high probability of clinically significant/life threatening deterioration in the patient's condition which required my urgent intervention. Impression: 1. Fall 2. Left ulnar fracture 3. Closed head injury Dispo: Discharge home This note was generated with [employer] dictation software. It may contain incorrect words, spelling, and punctuation that were not noted in review of the chart prior to signing. Radiography Diagnostic Testing: Clinical Impression(s) from Imaging Studies Brain CT 04/09/25 15:59 IMPRESSION: No acute traumatic findings. Reading Location: [id number] Cervical Spine CT 04/09/25 15:59 IMPRESSION: No acute cervical fracture or subluxations. Reading Location: [id number] Facial/Sinus 04/09/25 15:59 IMPRESSION: No acute traumatic findings. Reading Location: [facility] Elbow X-Ray 04/09/25 16:15 IMPRESSION: Acute minimally displaced oblique fracture of the mid ulnar shaft. Reading Location: [facility] Forearm X-Ray 04/09/25 16:15 IMPRESSION: Acute minimally displaced oblique fracture of the mid ulnar shaft. Reading Location: [facility] Discharge Plan Triage Chief Complaint: Fall ED Provider: Emigdio Campbell Dx/Rx/DC Orders Instructions: Fx Forearm Prescriptions: New oxycodone 5 mg tablet 5 mg PO Q6H PRN (Reason: pain) 3 Days Qty: 12 0RF No Action levothyroxine 175 mcg tablet 175 mcg PO DAILY PNV no.95-ferrous fumarate-FA [ Multivitamins] 28 mg iron- 800 mcg tablet 1 tab PO DAILY Stand Alone Forms: ED Work / School Excuse Primary Care Provider: Penelope Montano Referrals: Penelope Montano PA-C [Primary Care Provider, None] Activity Restrictions/Additional Instructions: Thank you for trusting us with your care today! Your imaging revealed a forearm fracture. There is no obvious significant trauma to your head face or neck. A splint has been applied. Please keep splint on as much as possible. Please take Tylenol (2 pills, 650 mg), ibuprofen (2 pills, 400 mg) every 6 hours as needed for pain and fever control. Please take oxycodone for breakthrough pain Please return to the emergency department if your symptoms change or worsen. Please follow with Orthopedic surgery for further outpatient evaluation and management. Print Language: Jordanian Disposition Disposition: Home, Self Care
--- NOTE | 2025-04-09 15:59 | CT_ITS ---
PROCEDURE: SPINE CERVICAL WITHOUT CONTRAS 04/09/2025 REASON FOR EXAM: FALL, +LOC TECHNIQUE: Procedure Code: CTSPC Modality: CT Procedure: SPINE CERVICAL WITHOUT CONTRAS Coronal and Sagittal reconstruction series were provided. One or more dose reduction techniques were used (e.g., Automated exposure control, adjustment of the mA and/or kV according to patient size, use of iterative reconstruction technique. RADIATION DOSE SUMMARY: DLP: 1770 mGycm COMPARISON: none FINDINGS: No acute compression deformity, fracture, or subluxation. Mild multilevel degenerative changes with mild multilevel central canal stenosis and foraminal stenosis due to posterior disc-osteophyte complex, facet hypertrophy, and uncovertebral hypertrophy most prominent at C6-C7.. No high-grade central canal stenosis. The prevertebral soft tissues are not thickened. Thyroid is unremarkable. Limited sections of the lung apices demonstrate no pneumothorax. CT/Spine Cervical without Contras IMPRESSION: No acute cervical fracture or subluxations. Reading Location: [id number]
--- NOTE | 2025-04-09 15:59 | CT_ITS ---
PROCEDURE: CT BRAIN/HEAD; SINUS/FACIAL BONE WITHOUT CONTRAST 04/09/2025 REASON FOR EXAM: FALL, HEAD TRAUMA, LOC; FALL, FACIAL TRAUMA R/O FX TECHNIQUE: Procedure Code: CTBR; CTSI Modality: CT Procedure: BRAIN/HEAD WITHOUT CONTRAST; SINUS/FACIAL BONE Coronal and Sagittal reconstruction series were provided. One or more dose reduction techniques were used (e.g., Automated exposure control, adjustment of the mA and/or kV according to patient size, use of iterative reconstruction technique. RADIATION DOSE SUMMARY: DLP: 1770.03 mGycm COMPARISON: None. FINDINGS: No acute intracranial hemorrhage, extra-axial collection, mass effect or acute infarct. The ventricular and sulcal size and configuration are within normal limits. No acute skull base, calvarial, or maxillofacial bone fracture. Well-aerated paranasal sinuses and bilateral mastoid air cells. Unremarkable orbital contents; the globes appear intact. No intraorbital hematoma or emphysema. No significant subcutaneous contusional changes or hematoma appreciated. CT/Brain/Head without Contrast IMPRESSION: No acute traumatic findings. Reading Location: [id number]
--- NOTE | 2025-04-09 15:59 | CT_ITS ---
PROCEDURE: CT BRAIN/HEAD; SINUS/FACIAL BONE WITHOUT CONTRAST 04/09/2025 REASON FOR EXAM: FALL, HEAD TRAUMA, LOC; FALL, FACIAL TRAUMA R/O FX TECHNIQUE: Procedure Code: CTBR; CTSI Modality: CT Procedure: BRAIN/HEAD WITHOUT CONTRAST; SINUS/FACIAL BONE Coronal and Sagittal reconstruction series were provided. One or more dose reduction techniques were used (e.g., Automated exposure control, adjustment of the mA and/or kV according to patient size, use of iterative reconstruction technique. RADIATION DOSE SUMMARY: DLP: 1770.03 mGycm COMPARISON: None. FINDINGS: No acute intracranial hemorrhage, extra-axial collection, mass effect or acute infarct. The ventricular and sulcal size and configuration are within normal limits. No acute skull base, calvarial, or maxillofacial bone fracture. Well-aerated paranasal sinuses and bilateral mastoid air cells. Unremarkable orbital contents; the globes appear intact. No intraorbital hematoma or emphysema. No significant subcutaneous contusional changes or hematoma appreciated. CT/Sinus/Facial Bone IMPRESSION: No acute traumatic findings. Reading Location: [id number]
[2025-04-09 16:00] VITALS: BP 96/77; PULSE 93
--- NOTE | 2025-04-09 16:15 | RAD_ITS ---
PROCEDURE: LEFT ELBOW MIN 3 VIEWS; FOREARM 2 VIEWS 04/09/2025 REASON FOR EXAM: PAIN, FALL; MID FOREARM PAIN AFTER FALL TECHNIQUE: Procedure Code: JANE ORTIZ Modality: DX Procedure: ELBOW MIN 3 VIEWS; FOREARM 2 VIEWS Laterality: Left COMPARISON: None. FINDINGS: Acute minimally displaced oblique fracture of the mid ulnar diaphysis. No additional acute fracture or dislocation visualized. Preserved visualized joint spaces. Mild soft tissue swelling of the forearm. RAD/Elbow min 3 Views IMPRESSION: Acute minimally displaced oblique fracture of the mid ulnar shaft. Reading Location: [id number]
--- NOTE | 2025-04-09 16:15 | RAD_ITS ---
PROCEDURE: LEFT ELBOW MIN 3 VIEWS; FOREARM 2 VIEWS 04/09/2025 REASON FOR EXAM: PAIN, FALL; MID FOREARM PAIN AFTER FALL TECHNIQUE: Procedure Code: JANE ORTIZ Modality: DX Procedure: ELBOW MIN 3 VIEWS; FOREARM 2 VIEWS Laterality: Left COMPARISON: None. FINDINGS: Acute minimally displaced oblique fracture of the mid ulnar diaphysis. No additional acute fracture or dislocation visualized. Preserved visualized joint spaces. Mild soft tissue swelling of the forearm. RAD/Forearm 2 Views IMPRESSION: Acute minimally displaced oblique fracture of the mid ulnar shaft. Reading Location: [id number]
[2025-04-09 17:17] VITALS: BP 110/71; PULSE 93; RESP 18; TEMP 35.7; O2SAT 97
== END 2025-04-09 17:17 | disposition home or self-care (01) ==
PROVIDERS: Emergency Provider Emergency Medicine; Visit Provider Emergency Medicine
DX: S09.90XA Unspecified injury of head, initial encounter (principal); E03.9 Hypothyroidism, unspecified; E66.9 Obesity, unspecified; S52.202A Unspecified fracture of shaft of left ulna, initial encounter for closed fracture; W10.9XXA Fall (on) (from) unspecified stairs and steps, initial encounter; F12.90 Cannabis use, unspecified, uncomplicated; F17.290 Nicotine dependence, other tobacco product, uncomplicated; Z87.442 Personal history of urinary calculi
CPT/HCPCS: 29105; 70450; 70486; 72125; 73080; 73090; 99282

== ENCOUNTER → 2025-04-12 | Outpatient (CLI) | payer SELFPAY ==
[2025-04-12 16:39] LABS: Internal QC Validated? YES +Cl - CLEAR BKGD; Pregnancy, Urine Negative Negative
[2025-04-12 16:49] LABS: Hematocrit 35.2 % (37-47); Hemoglobin 11.8 g/dL (12.0-15.0); Immature Granulocytes Count 0.020 X10^3/uL (0.0-0.0); Mean Corp Hgb Conc 33.5 g/dL (32-36); Mean Corpuscular Volume 91.7 fL (81-99); Mean Platelet Vol. 10.5 fl (6.2-12.0); NRBC Flagged by Analyzer 0 % (0-5); Platelet Count 294 K/mm3 (150-450); RBC Distribution Width CV 13.1 % (11.6-14.6); RBC Distribution Width SD 43.3 fl (35.1-43.9); Red Blood Count 3.84 M/mm3 (4.2-5.4); White Blood Count 7.6 K/mm3 (4.4-11.0)
== END | disposition home or self-care (01) ==
PROVIDERS: Referring Provider Orthopaedic Surgery; Visit Provider Orthopaedic Surgery
DX: Z01.818 Encounter for other preprocedural examination (principal)
CPT/HCPCS: 36415; 81025; 85025